=== PATIENT | female | born 1990 | race Two or more races ===

== ENCOUNTER 2024-02-10 11:53 | Inpatient (IN) | payer OTHER ==
[~2024-02-10] VITALS: Ht 152.4 cm; Wt 90.7 kg
[2024-02-10 12:20] LABS: BASOPHILS % (AUTO) 0.4 % (0.0-2.0); EOSINOPHILS # (AUTO) 0.1 K/uL (0.0-0.7); EOSINOPHILS % (AUTO) 0.9 % (0.0-7.0); HEMATOCRIT 40.8 % (31.2-41.9); HEMOGLOBIN 13.9 g/dL (10.9-14.3); LYMPHOCYTES # (AUTO) 1.4 K/uL (0.8-4.8); LYMPHOCYTES % (AUTO) 14.3 % (20.5-51.5); MEAN CORPUSCULAR HEMOGLOBIN 30.9 uug (24.7-32.8); MEAN CORPUSCULAR HGB CONC 34 g/dL (32.3-35.6); MEAN CORPUSCULAR VOLUME 90.9 fL (75.5-95.3); MONOCYTES # (AUTO) 0.6 K/uL (0.1-1.30); MONOCYTES % (AUTO) 6.2 % (0.0-11.0); NEUTROPHILS # (AUTO) 7.4 K/uL (1.8-8.9); NEUTROPHILS % (AUTO) 78.2 % (38.5-71.5); PLATELET COUNT (AUTO) 304 K/uL (179-408); RED CELL DISTRIBUTION WIDTH 12.8 % (12.3-17.7); WHITE BLOOD COUNT (AUTO) 9.5 K/uL (3.8-11.8)
[2024-02-10] MEDS ORDERED: ONDANSETRON 4 MG/2 ML VIAL ONE ×2 (12:28→18:41)
[2024-02-10] MEDS ORDERED: MORPHINE SULFATE 4 MG/1 ML DISP.SYRIN ONE ×2 (12:28→14:13)
[2024-02-10 12:31] LABS: DIFFERENTIAL COMMENT 1
[2024-02-10] MEDS: IV NORMAL SALINE 1000 ML BAG IV ONE ×2 (12:31→14:19)
[2024-02-10] MEDS: ONDANSETRON 4 MG/2 ML VIAL IV ONE ×2 (12:31→18:45)
[2024-02-10] MEDS: MORPHINE SULFATE 2 MG/1 ML DISP.SYRIN IV ONE (12:31)
[2024-02-10 12:32] LABS: CALCIUM 9.2 mg/dL (8.5-10.1); CARBON DIOXIDE 24 mmol/L (21-32); CHLORIDE 98 mmol/L (98-107); CREATININE 0.7 mg/dL (0.6-1.3); GLUCOSE 137 mg/dL (74-106); POTASSIUM 3.2 mmol/L (3.5-5.1); SODIUM SERUM 136 mmol/L (136-145); UREA NITROGEN, BLOOD 7 mg/dL (7-18)
[2024-02-10 12:38] LABS: ALANINE AMINOTRANSFERASE 37 U/L (14-59); ALBUMIN 4.1 g/dL (3.4-5.0); ALKALINE PHOSPHATASE 94 U/L (50-136); ASPARTATE AMINOTRANSFERASE 19 U/L (15-37); BILIRUBIN,DIRECT 0.3 mg/dL (0.0-0.2); BILIRUBIN,TOTAL 0.9 mg/dL (0.2-1.0); TOTAL PROTEIN, SERUM 8.2 g/dL (6.4-8.2)
[2024-02-10 13:48] LABS: LIPASE > 375 U/L (16-77)
[2024-02-10] MEDS: MORPHINE SULFATE 4 MG/1 ML DISP.SYRIN IV ONE (14:19)
[2024-02-10] MEDS ORDERED: hydrALAZINE HCL 20 MG/1 ML VIAL ONE ×2 (16:06→20:11)
[2024-02-10] MEDS: hydrALAZINE HCL 20 MG/1 ML VIAL IV ONE ×2 (16:11→20:20)
[2024-02-10 16:26] LABS: *BILIRUBIN,URIN NEGATIVE (NEGATIVE); *CLARITY,URINE CLEAR (CLEAR); *COLOR,URINE YELLOW (YELLOW); *KETONES,URINE 2+ (NEGATIVE); *PROTEIN,URINE 2+ (NEGATIVE); *UROBILINOGEN,URINE 0.2 E.U./dl (NORMAL); LEUKOCYTE ESTERASE ,URINE NEGATIVE (NEGATIVE); NITRITE, URINE NEGATIVE (NEGATIVE); UGLUCOSE NEGATIVE (NEGATIVE)
[2024-02-10 16:29] LABS: *BLOOD, URINE TRACE (NEGATIVE)
[2024-02-10 16:30] LABS: *URINE HCG, QUAL NEGATIVE (NEGATIVE)
[2024-02-10 16:40] LABS: ETHANOL < 3 MG/DL (0-10)
[2024-02-10 16:42] LABS: *AMPHETAMINE, URINE NEGATIVE (NEGATIVE); *BARBITURATE, URINE NEGATIVE (NEGATIVE); *BENZODIAZEPINE, URINE NEGATIVE (NEGATIVE); *CANNABINOID, URINE NEGATIVE (NEGATIVE); *COCCAINE, URINE NEGATIVE (NEGATIVE); *OPIATE, URINE POSITIVE (NEGATIVE); *PHENCYCLIDINE SCREEN,URINE NEGATIVE (NEGATIVE)
[2024-02-10 16:48] LABS: FENTANYL, URINE NEGATIVE (NEGATIVE)
[2024-02-10 16:50] LABS: BACTERIA,URINE FEW /HPF (NONE SEEN); RBC,URINE 0-3 /HPF (0-3)
[2024-02-10 16:51] LABS: SQUAMOUS EPITHELIAL CELL,UR FEW /HPF (NONE SEEN); WBC,URINE 0-3 /HPF (0-3)
[2024-02-10] MEDS ORDERED: HYDROMORPHONE 1 MG/1 ML DISP.SYRIN ONE ×2 (18:41→20:12)
[2024-02-10] MEDS: HYDROMORPHONE 1 MG/1 ML DISP.SYRIN IV ONE ×2 (18:45→20:21)
[2024-02-10] MEDS ORDERED: ENALAPRILAT DIHYDRATE 1.25 MG/1 ML VIAL IV ONE (20:11)
[2024-02-10] MEDS: ENALAPRILAT DIHYDRATE 1.25 MG/1 ML VIAL IV ONE ×2 (20:20→20:30)
[2024-02-10] MEDS ORDERED: ONDANSETRON 4 MG/2 ML VIAL IV PRN (20:30)
[2024-02-10] MEDS ORDERED: LORAZEPAM 2 MG/1 ML VIAL IV PRN (20:30)
[2024-02-10] MEDS ORDERED: IV D5W-0.45% NS +20 KCL 1,000 ML IV ONE (21:40)
[2024-02-10] MEDS ORDERED: CLONIDINE-TTS 1 PATCH TD ONE (21:48)
[2024-02-10] MEDS: POTASSIUM CHLORIDE 20 MEQ in IV D5 1/2 NS 1000 ML 1,000 ML IV PRN (22:06)
[2024-02-10 22:18] VITALS: BP 146/84; TEMP 97.5; O2SAT 95
[2024-02-10] MEDS: CLONIDINE-TTS 1 PATCH TD SCH (22:23)
[2024-02-10] MEDS: ACETAMINOPHEN 650 MG SUPP.RECT RC PRN (23:07)
[2024-02-11] VITALS: BP 189/103; TEMP 98; O2SAT 100
[2024-02-11] MEDS: MORPHINE SULFATE 2 MG/1 ML DISP.SYRIN IV PRN (00:31)
[2024-02-11] MEDS: HYDROMORPHONE 1 MG/1 ML DISP.SYRIN IV PRN ×2 (01:57→08:25)
[2024-02-11] MEDS: NITROGLYCERIN 0.4 MG/TAB BOTTLE SL PRN (05:45)
[2024-02-11 06:00] VITALS: BP 203/112; TEMP 98; O2SAT 100
[2024-02-11] MEDS ORDERED: METOPROLOL TARTRATE 50 MG TABLET PO SCH (06:45)
[2024-02-11 07:28] LABS: BASOPHILS % (AUTO) 0.1 % (0.0-2.0); EOSINOPHILS % (AUTO) 0.1 % (0.0-7.0); HEMATOCRIT 39.2 % (31.2-41.9); HEMOGLOBIN 13.3 g/dL (10.9-14.3); LYMPHOCYTES # (AUTO) 0.8 K/uL (0.8-4.8); LYMPHOCYTES % (AUTO) 8.2 % (20.5-51.5); MEAN CORPUSCULAR HEMOGLOBIN 31.1 uug (24.7-32.8); MEAN CORPUSCULAR HGB CONC 34 g/dL (32.3-35.6); MEAN CORPUSCULAR VOLUME 91.5 fL (75.5-95.3); MONOCYTES # (AUTO) 0.6 K/uL (0.1-1.30); MONOCYTES % (AUTO) 6.4 % (0.0-11.0); NEUTROPHILS # (AUTO) 8.6 K/uL (1.8-8.9); NEUTROPHILS % (AUTO) 85.2 % (38.5-71.5); PLATELET COUNT (AUTO) 260 K/uL (179-408); RED BLOOD CELL COUNT(AUTO) 4.28 MIL/uL (3.63-4.92); RED CELL DISTRIBUTION WIDTH 12.9 % (12.3-17.7); WHITE BLOOD COUNT (AUTO) 10.1 K/uL (3.8-11.8)
[2024-02-11 07:30] LABS: ALANINE AMINOTRANSFERASE 30 U/L (14-59); ALBUMIN 3.5 g/dL (3.4-5.0); ALKALINE PHOSPHATASE 82 U/L (50-136); ASPARTATE AMINOTRANSFERASE 18 U/L (15-37); BILIRUBIN,TOTAL 0.8 mg/dL (0.2-1.0); CALCIUM 8.6 mg/dL (8.5-10.1); CARBON DIOXIDE 25 mmol/L (21-32); CHLORIDE 98 mmol/L (98-107); CREATININE 0.5 mg/dL (0.6-1.3); GLUCOSE 171 mg/dL (74-106); MAGNESIUM 1.8 mg/dL (1.8-2.4); PHOSPHOROUS 2.5 mg/dL (2.5-4.9); POTASSIUM 3.1 mmol/L (3.5-5.1); SODIUM SERUM 134 mmol/L (136-145); TOTAL PROTEIN, SERUM 7.7 g/dL (6.4-8.2); UREA NITROGEN, BLOOD 4 mg/dL (7-18)
[2024-02-11 07:43] LABS: DIFFERENTIAL COMMENT 1
[2024-02-11 08:21] LABS: LIPASE 934 U/L (16-77)
[2024-02-11] MEDS: PANTOPRAZOLE SODIUM 40 MG VIAL IV SCH (08:25)
[2024-02-11] MEDS: METOPROLOL TARTRATE 50 MG TABLET PO SCH (08:26)
[2024-02-11 12:32] VITALS: BP 173/111; TEMP 99.6; O2SAT 100
[2024-02-11] MEDS: AMLODIPINE 5 MG TABLET PO SCH (12:49)
[2024-02-11 15:12] VITALS: BP 160/106; TEMP 99.8; O2SAT 97
[2024-02-11] MEDS: HYDROCODONE/APAP 10-325 MG TABLET PO PRN (15:19)
[2024-02-11] MEDS: MEROPENEM 1 G in IV NORMAL SALINE 100 ML IV SCH (16:25)
[2024-02-11 17:18] LABS: LACTIC ACID 3.5 mmol/L (0.4-2.0)
[2024-02-11 17:19] LABS: NT-PRO BNP 162 pg/mL (0-125)
[2024-02-11] MEDS ORDERED: IOHEXOL 300MG/ML 100 ML INFUS..BTL ONE (17:23)
[2024-02-11] MEDS ORDERED: SWABABLE VALVE TRANSFER SET EA MC ONE (17:23)
[2024-02-11] MEDS ORDERED: IV NORMAL SALINE 250 ML IV ONE (17:23)
[2024-02-11 17:51] LABS: LIPASE > 375 U/L (16-77)
[2024-02-11 20:00] VITALS: BP 150/100; TEMP 97.9; O2SAT 97
[2024-02-12 00:05] VITALS: BP 150/97; TEMP 99; O2SAT 97
[2024-02-12] MEDS: LORAZEPAM 1 MG TABLET PO PRN (00:36)
[2024-02-12 04:15] VITALS: BP 133/97; TEMP 98.9; O2SAT 98
[2024-02-12 07:37] LABS: BASOPHILS % (AUTO) 0.2 % (0.0-2.0); EOSINOPHILS # (AUTO) 0.1 K/uL (0.0-0.7); EOSINOPHILS % (AUTO) 0.6 % (0.0-7.0); LYMPHOCYTES # (AUTO) 1.3 K/uL (0.8-4.8); MEAN CORPUSCULAR HEMOGLOBIN 30.4 uug (24.7-32.8); MEAN CORPUSCULAR HGB CONC 33 g/dL (32.3-35.6); MEAN CORPUSCULAR VOLUME 91.1 fL (75.5-95.3); MONOCYTES # (AUTO) 0.6 K/uL (0.1-1.30); MONOCYTES % (AUTO) 6.4 % (0.0-11.0); NEUTROPHILS # (AUTO) 6.9 K/uL (1.8-8.9); NEUTROPHILS % (AUTO) 77.8 % (38.5-71.5); PLATELET COUNT (AUTO) 264 K/uL (179-408); RED BLOOD CELL COUNT(AUTO) 3.95 MIL/uL (3.63-4.92); RED CELL DISTRIBUTION WIDTH 13.1 % (12.3-17.7); WHITE BLOOD COUNT (AUTO) 8.8 K/uL (3.8-11.8)
[2024-02-12 07:46] LABS: DIFFERENTIAL COMMENT 1
[2024-02-12 07:54] LABS: ALANINE AMINOTRANSFERASE 23 U/L (14-59); ALBUMIN 3.1 g/dL (3.4-5.0); ALKALINE PHOSPHATASE 79 U/L (50-136); ASPARTATE AMINOTRANSFERASE 16 U/L (15-37); CARBON DIOXIDE 24 mmol/L (21-32); CHLORIDE 100 mmol/L (98-107); CREATININE 0.5 mg/dL (0.6-1.3); GLUCOSE 145 mg/dL (74-106); LIPASE 332 U/L (16-77); MAGNESIUM 2.2 mg/dL (1.8-2.4); PHOSPHOROUS 2.3 mg/dL (2.5-4.9); POTASSIUM 2.9 mmol/L (3.5-5.1); SODIUM SERUM 138 mmol/L (136-145); TOTAL PROTEIN, SERUM 7.7 g/dL (6.4-8.2); UREA NITROGEN, BLOOD 3 mg/dL (7-18)
[2024-02-12 07:55] VITALS: BP 148/99; TEMP 99.5; O2SAT 97
[2024-02-12] MEDS: FOLIC ACID 1 MG TABLET PO SCH (09:17)
[2024-02-12] MEDS: THIAMINE HCL 100 MG TABLET PO SCH (09:17)
[2024-02-12] MEDS: POTASSIUM CHLORIDE 50 ML IV SCH (10:06)
[2024-02-12 12:00] VITALS: BP 159/104; TEMP 97.7; O2SAT 98
[2024-02-12] MEDS: SODIUM PHOSPHATE MM 15 MMOL in IV NORMAL SALINE 250 ML IV ONE (13:30)
[2024-02-12] MEDS: ENALAPRILAT DIHYDRATE 1.25 MG/1 ML VIAL IV PRN (13:30)
[2024-02-12 16:12] VITALS: BP 145/87; TEMP 98.1; O2SAT 97
[2024-02-12] MEDS: BISACODYL 10 MG SUPP.RECT RC ONE (17:56)
[2024-02-12 20:00] VITALS: BP 141/87; TEMP 98; O2SAT 98
[2024-02-13 06:06] VITALS: BP 150/84; TEMP 98.9; O2SAT 98
[2024-02-13] MEDS: PANTOPRAZOLE SODIUM 40 MG TABLET.DR PO SCH (06:52)
[2024-02-13 07:05] LABS: BASOPHILS % (AUTO) 0.5 % (0.0-2.0); EOSINOPHILS # (AUTO) 0.2 K/uL (0.0-0.7); EOSINOPHILS % (AUTO) 2.5 % (0.0-7.0); HEMATOCRIT 34.6 % (31.2-41.9); HEMOGLOBIN 11.6 g/dL (10.9-14.3); LYMPHOCYTES # (AUTO) 1.4 K/uL (0.8-4.8); LYMPHOCYTES % (AUTO) 20.8 % (20.5-51.5); MEAN CORPUSCULAR HEMOGLOBIN 31.1 uug (24.7-32.8); MEAN CORPUSCULAR HGB CONC 33 g/dL (32.3-35.6); MONOCYTES # (AUTO) 0.4 K/uL (0.1-1.30); MONOCYTES % (AUTO) 6.6 % (0.0-11.0); NEUTROPHILS # (AUTO) 4.7 K/uL (1.8-8.9); NEUTROPHILS % (AUTO) 69.6 % (38.5-71.5); PLATELET COUNT (AUTO) 221 K/uL (179-408); RED BLOOD CELL COUNT(AUTO) 3.72 MIL/uL (3.63-4.92); RED CELL DISTRIBUTION WIDTH 13.1 % (12.3-17.7); WHITE BLOOD COUNT (AUTO) 6.7 K/uL (3.8-11.8)
[2024-02-13 07:12] LABS: DIFFERENTIAL COMMENT 1
[2024-02-13 07:17] LABS: CALCIUM 8.8 mg/dL (8.5-10.1); CARBON DIOXIDE 26 mmol/L (21-32); CHLORIDE 102 mmol/L (98-107); CREATININE 0.5 mg/dL (0.6-1.3); GLUCOSE 136 mg/dL (74-106); LIPASE 158 U/L (16-77); PHOSPHOROUS 3.4 mg/dL (2.5-4.9); SODIUM SERUM 139 mmol/L (136-145); UREA NITROGEN, BLOOD 5 mg/dL (7-18)
[2024-02-13] MEDS: POTASSIUM CHLORIDE 20 MEQ in IV D5 1/2 NS 1000 ML 1,000 ML IV PRN (11:14)
[2024-02-13 12:00] VITALS: BP 146/105; TEMP 98.7; O2SAT 98
[2024-02-13] MEDS: POTASSIUM CHLORIDE 20 MEQ TAB.PRT.SR PO ONE (12:03)
[2024-02-13 13:11] VITALS: BP 154/102; TEMP 98; O2SAT 98
[2024-02-13 13:19] VITALS: BP 154/102
[2024-02-13] MEDS: METOPROLOL TARTRATE 25 MG TABLET PO SCH (13:19)
[2024-02-13] MEDS ORDERED: THIA100T13 PO (13:40)
[2024-02-13] MEDS ORDERED: PANT40TA49 PO (13:40)
[2024-02-13] MEDS ORDERED: METO25TA6 PO (13:40)
[2024-02-13] MEDS ORDERED: FOLI1TAB94 PO (13:40)
[2024-02-13] MEDS ORDERED: AMLO-212 PO (13:40)
== END 2024-02-13 14:35 | disposition home or self-care (01) | DRG 720 ==
LOC: ER 11:53 → MEDSURG3 20:28 → TELE3 23:39 → MEDSURG3 02-12 18:57
PROVIDERS: ADMIT Internal Medicine; ATTEND Internal Medicine
PROC: 05HF33Z Insertion of Infusion Device into Left Cephalic Vein, Percutaneous Approach (ICD-10-PCS; principal; 2024-02-12)
DX: A41.9 Sepsis, unspecified organism (principal); K85.20 Alcohol induced acute pancreatitis without necrosis or infection; E87.20 Acidosis, unspecified; I16.0 Hypertensive urgency; R73.9 Hyperglycemia, unspecified; F10.10 Alcohol abuse, uncomplicated; Y90.0 Blood alcohol level of less than 20 mg/100 ml; K29.20 Alcoholic gastritis without bleeding; E66.9 Obesity, unspecified; Z68.39 Body mass index [BMI] 39.0-39.9, adult; E87.6 Hypokalemia; I10 Essential (primary) hypertension; K42.9 Umbilical hernia without obstruction or gangrene; Z83.3 Family history of diabetes mellitus; Z80.51 Family history of malignant neoplasm of kidney; R79.89 Other specified abnormal findings of blood chemistry; R00.0 Tachycardia, unspecified; J98.11 Atelectasis
CPT/HCPCS: 36415; 83605; 83690; 83735; 84100; 84484; 84703; 85025; 93005; A4663; G0378; G0480; J0360; J1170; J2185; J2270; J2405; J2470; J3480; J3490; J7040; Q9967

== ENCOUNTER 2025-05-27 09:38 | Emergency (ER) | payer OTHER ==
[~2025-05-27] VITALS: Ht 152.4 cm; Wt 90.7 kg
[~2025-05-27 09:38] MED LIST: AMLO-212 PO; FOLI1TAB94 PO; METO25TA6 PO; PANT40TA49 PO; THIA100T13 PO
[2025-05-27] MEDS ORDERED: METOCLOPRAMIDE HCL 10 MG/2 ML VIAL ONE (10:01)
[2025-05-27] MEDS ORDERED: diphenhydrAMINE 50 MG/1 ML VIAL ONE (10:01)
[2025-05-27] MEDS ORDERED: MORPHINE SULFATE 4 MG/1 ML DISP.SYRIN ONE (10:01)
[2025-05-27] MEDS ORDERED: FAMOTIDINE. 20 MG/2 ML VIAL IV ONE (10:02)
[2025-05-27 10:06] LABS: PLATELET COUNT (AUTO) 354 K/uL (179-408); RED BLOOD CELL COUNT(AUTO) 4.87 MIL/uL (3.63-4.92); RED CELL DISTRIBUTION WIDTH 14.4 % (12.3-17.7); WHITE BLOOD COUNT (AUTO) 12.8 K/uL (3.8-11.8)
[2025-05-27 10:20] LABS: ASPARTATE AMINOTRANSFERASE 9.0 U/L (15-37); CREATININE 0.8 mg/dL (0.6-1.3); SODIUM SERUM 135.0 mmol/L (136-145); TOTAL PROTEIN, SERUM 8.4 g/dL (6.4-8.2); UREA NITROGEN, BLOOD 12.0 mg/dL (7-18)
[2025-05-27] MEDS: IV NORMAL SALINE 1000 ML BAG IV ONE ×2 (10:21→12:34)
[2025-05-27] MEDS: diphenhydrAMINE 50 MG/1 ML VIAL IV ONE (10:21)
[2025-05-27] MEDS: MORPHINE SULFATE 2 MG/1 ML DISP.SYRIN IV ONE ×2 (10:23→11:24)
[2025-05-27 10:25] LABS: ETHANOL < 3 MG/DL (0-10)
[2025-05-27] MEDS: FAMOTIDINE. 20 MG/2 ML VIAL IV ONE (10:25)
[2025-05-27] MEDS: METOCLOPRAMIDE HCL 10 MG/2 ML VIAL IV ONE (10:27)
[2025-05-27] MEDS ORDERED: PANTOPRAZOLE SODIUM 40 MG VIAL ONE (11:23)
[2025-05-27] MEDS ORDERED: MORPHINE SULFATE 2 MG/1 ML DISP.SYRIN ONE (11:24)
[2025-05-27] MEDS: PANTOPRAZOLE SODIUM 40 MG VIAL IV ONE (11:26)
[2025-05-27] MEDS ORDERED: METO-295 PO (11:42)
[2025-05-27] MEDS ORDERED: HYOS0.1275 SL (11:42)
[2025-05-27] MEDS ORDERED: PANT40TA49 PO (11:42)
[2025-05-27] MEDS ORDERED: HYDR-3980 PO (11:42)
[2025-05-27 13:39] LABS: *BILIRUBIN,URIN NEGATIVE (NEGATIVE); *CLARITY,URINE CLEAR (CLEAR); *COLOR,URINE YELLOW (YELLOW); *KETONES,URINE TRACE (NEGATIVE); *UROBILINOGEN,URINE 0.2 E.U./dl (NORMAL); LEUKOCYTE ESTERASE ,URINE NEGATIVE (NEGATIVE); NITRITE, URINE NEGATIVE (NEGATIVE); UGLUCOSE NEGATIVE (NEGATIVE)
[2025-05-27 13:44] LABS: *BLOOD, URINE TRACE (NEGATIVE); *PROTEIN,URINE 3+ (NEGATIVE)
[2025-05-27 13:55] LABS: *URINE HCG, QUAL NEGATIVE (NEGATIVE); SQUAMOUS EPITHELIAL CELL,UR FEW /HPF (NONE SEEN)
[2025-05-27 14:00] VITALS: BP 139/89; O2SAT 99
== END 2025-05-27 14:06 | disposition home or self-care (01) ==
LOC: ER 09:38
DX: K85.20 Alcohol induced acute pancreatitis without necrosis or infection (principal); Z79.899 Other long term (current) drug therapy; Z87.19 Personal history of other diseases of the digestive system
CPT/HCPCS: 80076; 80048; 81001; 82140; 84703; 83690; 85025; 85730; 36415; 99284; 96361; 96374; 96375; 96376; 80320; J1200; J1308; J2765; J2470; J2270 ×2; J7040; A4606; A4663; G0480